=== PATIENT | female | born 1980 | race Two or more races ===

== ENCOUNTER 2024-06-03 18:43 | Inpatient (IN) | payer MEDICAID ==
[~2024-06-03] VITALS: Ht 162.6 cm; Wt 78.6 kg
--- NOTE | 2024-06-03 19:34 | ED.PDOC ---
Musculoskeletal HPI Comments 44-year-old female presents with a chief complaint of right foot pain x 2 weeks. Patient states that she was mopping x 2 weeks ago and somehow injured her foot. Patient is stating that her pain is localized to her right distal foot, nonradiating, and is constant. Patient mentions that she went to the urgent care and was assessed. Patient mentions that urgent care told her that she had inflammation and reassured her that nothing was broken. Patient mentions that she was prescribed Tylenol. Patient mentions that she has been taking Tylenol but denies any improvement of symptoms. Patient is able to ambulate. PMHx: Denies PSHx: Denies SHx: Denies HPI: Poor Historian. REVIEW OF SYSTEMS: CONSTITUTIONAL: Denies acute: fever, diaphoresis, chills, generalized weakness. HEAD: Denies acute: headache, photophobia Eyes: Denies acute: Double vision, vision loss, eye pain, eye discharge. EARS: Denies acute: tinnitus, hearing loss, ear discharge, ear pain, THROAT: Denies acute: sore throat, swelling, difficulty swallowing , pain with swallowing, change in voice. NECK: Denies acute: neck pain, neck swelling, stiff neck. HEART: Denies acute : chest pain, palpitations, LUNGS: Denies acute: SOB, wheezing, cough, hemoptysis ABDOMEN: Denies acute: abdominal pain, Nausea, Vomiting, diarrhea, melena , hematemesis, hematochezia SKIN: Denies acute: rash, redness, lesions, itchiness. EXTREMITIES: Denies acute: calf pain, numbness, tingling, weakness, Denies acute: Low back pain. Neuro: Denies acute: focal neurological deficit, motor or sensory focal neurological deficit, tremors, seizure like activity, confusion, dizziness, change in mental status, loss of bowel or bladder function, cauda equina like symptoms. : Denies acute: dysuria, hematuria, flank pain, increase in urinary frequency. PSYCH: Denies acute: hallucination, suicidal ideation, homicidal ideation. FEMALE: Denies acute: abnormal vaginal bleeding, foul odor, unusual discharge. PHYSICAL EXAM: General: no acute distress, awake and alert. Head: normocephalic, atraumatic. Neck: supple, trachea is midline, no swelling. Throat: Normal phonation. Eyes:, no erythema, no purulent discharge, no proptosis, no icterus. Heart: regular rate, regular rhythm, no significant murmur appreciated. Lungs: no apparent respiratory distress, Able to speak in full sentences. No wheezing, no rhonchi, no crackles. No stridors Clear to auscultation bilaterally. Abdomen: non tender to palpation, non distended, soft, no guarding, no rebound, + bowel sounds. Neuro: Awake, Alert, oriented to name, self, situation, follows commands GCS=15. Speech is normal. Skin: no petechia, no purpura, no cyanosis, non-pale, not jaundice. Lower extremities: --no - Pitting edema no deformity, no focal swelling, no calf TTP. Evaluation of the right foot: Patient points to the base of the toes 3rd and 4th and 5th digit both at the plantar and dorsal aspect of the base of the toes where her pain is. Pain is worse with movement of the toes. Area is tenderness to palpation. No apparent swelling or bruising. Patient is neurovascularly intact in the affected extremity. Pedal pulses palpable. Sensory and motor are present. Makes eye contact. moves all four extremities. Face: no apparent facial droop. Ambulating in the ED independently. Pedal pulses are palpable. 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 Was a procedure done?: No Differential Diagnosis EXT Differential Diagnosis: Cellulitis, Deep Vein Thrombosis, Compartment Syndrome, Fracture, Sprain, Dislocation, Gout, DJD, Myocardial Infarction, Contusion, Strain, Rheumatoid, Septic, Neurovascular injury, Arthritis, Bursitis X-Ray, Labs, Meds, VS Vital Signs Date Time Temp Pulse Resp B/P (MAP) Pulse Ox O2 Delivery O2 Flow Rate FiO2 06/03/24 22:13 98.0 80 18 121/78 (92) 96 98.0 06/03/24 20:13 98.1 104 16 147/92 (110) 96 98.1 06/03/24 19:37 99.9 112 18 157/98 (117) 98 99.9 Lab Test 06/03/24 20:49 06/03/24 19:40 06/03/24 18:08 Range/Units D-Dimer, Quantitative < 0.19 0.0-0.49 mg/L FEU Troponin I High Sensitivity 9 10 </=34 ng/L White Blood Count 18.8 H 4.4-10.8 10^3/uL Red Blood Count 4.44 4.0-5.20 10^6/uL Hemoglobin 13.3 12.2-16.2 g/dL Hematocrit 40.6 36.0-46.0 % Mean Corpuscular Volume 91.4 80.0-100.0 fL Mean Corpuscular Hemoglobin 30.1 28.0-32.0 pg Mean Corpuscular Hemoglobin Concent 32.9 32.0-36.0 g/dL Red Cell Distribution Width 14.0 11.8-14.3 % Platelet Count 293 140-450 10^3/uL Mean Platelet Volume 8.5 6.9-10.8 fL Neutrophils (%) (Auto) 83.1 H 37.0-80.0 % Lymphocytes (%) (Auto) 10.0 10.0-50.0 % Monocytes (%) (Auto) 4.6 0.0-12.0 % Eosinophils (%) (Auto) 1.9 0.0-7.0 % Basophils (%) (Auto) 0.4 0.0-2.0 % Neutrophils # (Auto) 15.6 H 1.6-8.6 10 ^3/uL Lymphocytes # (Auto) 1.9 0.4-5.4 10 ^3/uL Monocytes # (Auto) 0.9 0-1.3 10 ^3/uL Eosinophils # (Auto) 0.4 0-0.8 10 ^3/uL Basophils # (Auto) 0.1 0-0.2 10 ^3/uL Nucleated Red Blood Cells 0.0 % Erythrocyte Sedimentation Rate 10 0-20 mm/hr Sodium Level 139 136-145 mmol/L Potassium Level 4.1 3.5-5.1 mmol/L Chloride Level 107 98-107 mmol/L Carbon Dioxide Level 24 20-31 mmol/L Anion Gap 8 5-15 Blood Urea Nitrogen 14 9-23 mg/dL Creatinine 0.65 0.550-1.02 mg/dL Glomerular Filtration Rate Calc 111 >90 mL/min BUN/Creatinine Ratio 21.5 H 10.0-20.0 Serum Glucose 111 H 74-106 mg/dL Lactic Acid Level 1.3 0.4-2.0 mmol/L Uric Acid 4.4 3.1-7.8 mg/dL Calcium Level 10.0 8.7-10.4 mg/dL Magnesium Level 2.1 1.6-2.6 mg/dL Total Bilirubin 0.4 0.2-1.0 mg/dL Aspartate Amino Transferase (AST) 32 13-40 U/L Alanine Aminotransferase (ALT) 68 H 7-40 U/L Alkaline Phosphatase 104 46-116 U/L C-Reactive Protein High Sensitivity 0.99 <1.0 mg/dL Total Protein 7.0 5.7-8.2 g/dL Albumin 4.7 3.2-4.8 g/dL Thyroid Stimulating Hormone (TSH) 3.94 0.55-4.78 uIU/mL Urine Color Colorless Yellow Urine Clarity Clear Clear Urine pH 6.5 5.0-9.0 Urine Specific [place] 1.012 1.001-1.035 Urine Protein Negative Negative Urine Ketones Negative Negative Urine Blood Negative Negative /uL Urine Nitrite Negative Negative Urine Bilirubin Negative Negative Urine Urobilinogen Normal Negative mg/dL Urine Leukocyte Esterase Negative Negative /uL Urine RBC 1 0 - 4 /hpf Urine Microscopic WBC 3 0-5 /HPF Urine Squamous Epithelial Cells Few <5 /hpf Urine Bacteria None seen None Seen /hpf Urine Glucose Normal Normal mg/dL Current Medications Medications (Trade) Dose Ordered Sig/Jeremiah Route Start Time Stop Time Status Last Admin Acetaminophen/ Hydrocodone Bitart ([place] 5/325MG Tab) 1 tab ONCE ONCE PO 06/03/24 19:45 06/03/24 19:46 DC 06/03/24 20:10 Sodium Chloride 1,000 ml @ 1,000 mls/hr Q1H ONCE IV 06/03/24 20:45 06/03/24 21:44 DC 06/03/24 22:06 Ceftriaxone Sodium 50 ml @ 100 mls/hr ONCE ONCE IV 06/03/24 20:45 06/03/24 21:35 DC 06/03/24 22:05 PATIENT: DESI MENDOSAACCT: [id number]: [id number] : 1980 LOC: ER ROOM / BED: / AGE / SEX: 44 / F ADM STATUS: REG ER SERVICE 30 ORDERING PHYSICIAN: RAFAELA TOWNSEND DO PROCEDURE(s): RFOOT - R FOOT 3 VIEW XRAY REASON: foot pain ORDER NUMBER(s): [id number], ACCESSION NUMBER(s): [id number] XY R FOOT 3 VIEW XRAY, June 04, 1999 INDICATION: foot pain TECHNICAL DATA: Frontal, oblique and lateral views were obtained of the right foot. COMPARISON: None FINDINGS: Bones are intact over there is edema involving the forefoot IMPRESSION: 1. Bones are intact but there is edema involving the forefoot . ATED BY: DESTIN LANDAVERDE MD DICTATED DATE/TIME: 06/03/242019 SIGNED BY: DESTIN LANDAVERDE MD SIGNED DATE/TIME: 06/03/242019 Time of 1ST Reevaluation: 19:58 Reevaluation 1ST: Unchanged Patient Education/Counseling: Diagnosis, Treatment Family Education/Counseling: No Family Present Comments Patient presented with the above HPI.----foot pain/tachycardic--workup was initiated. patient was found with the above mentioned diagnosis. the following medications were ordered: please refer to order lists of meds and tests obtained by myself Dr. Townsend. Patient ED course and VS have been stabilized. Patient has been reassessed in the ED and remained in a stable condition. Pertinent incidental findings were discussed with the patient and/or family. Patient/family voices understanding and is agreeable with plan. Patient has been observed in the ED adequate length of time to insure improvement/stability. Escalation of care considered: Consideration of escalation to observation or admission Patient was ADMITTED to the medicine team for further evaluation and treatment of their presentation. Patient does meet sepsis criteria per presentation. Sepsis protocol was initiated with fluids. All the reports of any imaging studies that were ordered by myself were reviewed by myself. Departure 1 Departure Time of Disposition: 21:28 Impression: Primary Impression: Leukocytosis Additional Impressions: Tachycardia Right foot pain Disposition: ADMITTED INPATIENT Admit to: Tele Condition: Guarded Discharged With: Self Critical Care Note Critical Care Time?: No I personally scribed for RAFAELA TOWNSEND DO ([email or web address]) on 06/03/24 at 19:34. Electronically submitted by Juan Miguel Edwards ([email or web address]). I personally scribed for RAFAELA TOWNSEND DO ([email or web address]) on 06/03/24 at 20:29. Electronically submitted by Juan Miguel Edwards ([email or web address]). RAFAELA TOWNSEND DO Jun 03, 2024 19:34
[2024-06-03] MEDS: HYDROcodone-ACET 5/325MG TAB PO ONE (20:10)
--- NOTE | 2024-06-03 20:23 | DVH ---
XY R FOOT 3 VIEW XRAY, June 04, 1999 25 INDICATION: foot pain TECHNICAL DATA: Frontal, oblique and lateral views were obtained of the right foot. COMPARISON: None FINDINGS: Bones are intact over there is edema involving the forefoot IMPRESSION: 1. Bones are intact but there is edema involving the forefoot .
[2024-06-03 20:24] LABS: Basophils # (auto) 0.1 10 ^3/uL (0-0.2); Basophils % (auto) 0.4 % (0.0-2.0); Eosinophils # (auto) 0.4 10 ^3/uL (0-0.8); Eosinophils % (auto) 1.9 % (0.0-7.0); Hematocrit 40.6 % (36.0-46.0); Hemoglobin 13.3 g/dL (12.2-16.2); Lymphocytes # (auto) 1.9 10 ^3/uL (0.4-5.4); Mean Corpuscular Hemoglobin 30.1 pg (28.0-32.0); Mean Corpuscular Hgb Conc. 32.9 g/dL (32.0-36.0); Mean Corpuscular Volume 91.4 fL (80.0-100.0); Monocytes # (auto) 0.9 10 ^3/uL (0-1.3); Monocytes % (auto) 4.6 % (0.0-12.0); Neutrophils # (auto) 15.6 10 ^3/uL (1.6-8.6); Neutrophils % (auto) 83.1 % (37.0-80.0); Platelet Count (auto) 293 10^3/uL (140-450); Red Blood Cells 4.44 10^6/uL (4.0-5.20); White Blood Cell 18.8 10^3/uL (4.4-10.8)
[2024-06-03 20:29] LABS: Albumin 4.7 g/dL (3.2-4.8); Alkaline Phosphatase 104 U/L (46-116); Anion Gap 8 (5-15); Aspartate Aminotransferase 32 U/L (13-40); BUN/Creatinine Ratio 21.5 (10.0-20.0); Bilirubin, Total 0.4 mg/dL (0.2-1.0); Blood Urea Nitrogen 14 mg/dL (9-23); Carbon Dioxide 24 mmol/L (20-31); Chloride 107 mmol/L (98-107); Magnesium 2.1 mg/dL (1.6-2.6); Potassium 4.1 mmol/L (3.5-5.1); Sodium 139 mmol/L (136-145); Uric Acid 4.4 mg/dL (3.1-7.8)
[2024-06-03 20:30] LABS: Alanine Aminotransferase 68 U/L (7-40); Glucose 111 mg/dL (74-106)
[2024-06-03 20:41] LABS: Urine Bacteria None Seen /hpf (None Seen)
[2024-06-03 20:41] LABS: CRP High Sensitivity 0.99 mg/dL (<1.0)
[2024-06-03 20:58] LABS: Urine Blood Negative /uL (Negative); Urine Clarity Clear (Clear); Urine Color Colorless (Yellow); Urine Protein, UAD Negative (Negative); Urine Specific Gravity 1.012 (1.001-1.035); Urine Squamous Epithelial Cell FEW /hpf (<5); Urine Urobilinogen Normal (Negative); Urine WBC 3 /HPF (0-5); Urine pH 6.5 (5.0-9.0)
--- NOTE | 2024-06-03 21:06 | DVH ---
CHEST RADIOGRAPH Indication: tachy, leukocytosis Technique: Single frontal view of the chest was obtained Comparison: None FINDINGS: Lines and Tubes: None Lungs: No focal consolidation. Pleura: No effusion. No pneumothorax. Cardiomediastinal contours: Unremarkable Bones: No acute osseous abnormality. IMPRESSION: 1. No acute cardiopulmonary disease. HS:Y
[2024-06-03 21:33] LABS: Erythrocyte Sedimentation Rate 10 mm/hr (0-20)
[2024-06-03] MEDS: cefTRIAXone 1GM/50ML D5W 50 ML IV ONE (22:05)
[2024-06-03] MEDS: SODIUM CHLORIDE 0.9% 1,000 ML IV ONE (22:06)
[2024-06-03 22:15] VITALS: PULSE 80; RESP 18; O2SAT 95
[2024-06-03] MEDS ORDERED: MORPHINE SULFATE INJ 2 MG/ml SYRG IV PRN ×2 (22:45→23:15)
[2024-06-03] MEDS ORDERED: DOCUSATE SOD 100 MG CAP PO PRN (22:45)
[2024-06-03] MEDS ORDERED: ONDANSETRON HCL 4 MG/2 ML VIAL IV PRN (22:45)
[2024-06-03] MEDS ORDERED: HYDROcodone-ACET 5/325MG TAB PO PRN (22:45)
[2024-06-03] MEDS ORDERED: NITROGLYCERIN 0.4 MG SL TAB SL PRN (23:15)
--- NOTE | 2024-06-03 23:16 | DVHHP2 ---
History of Present Illness Reason for Visit: Leukocytosis, unspecified History of Present Illness The patient is a 44-year-old female who denies past medical history presented to [facility] ED with complaint of right foot pain for the past 2 weeks. Patient reports she has been having localized pain to her right distal foot, nonradiating, constant, sharp sensation, rating 7/10 numeric scale, getting worse that prompted this visit. Patient was seen and evaluated in the ED, laboratory data shows WBC 18.8, platelets 293, sodium 139, potassium 4.1, BUN 14, creatinine 0.65, GFR 111, glucose 111, AST 32, ALT 68, troponin 10, TSH 3.94. Right foot x-ray revealing bones are intact but there is edema involving the forefoot. Please see medication orders section in the computer. On my assessment, patient denied chest pain, no headache, no dizziness, no shortness of breaths, no nausea, no vomiting, no fever, no chills. Patient was admitted for further evaluation and medical management. Past Medical History Denies past medical history Past Surgical History Denies all surgeries Family History Reviewed, noncontributory to the management of this case. Past Social History The patient lives at home, denies smoking, alcohol or illicit drugs abuse. Review of Systems Constitutional: No: Fever, Chills, Sweats, Weakness, Malaise, Other Eyes: No: Pain, Vision change, Conjunctivae inflammation, Eyelid inflammation, Other, Redness ENT: No: Ear pain, Ear discharge, Nose pain, Nose discharge, Nose congestion, Mouth pain, Mouth swelling, Throat pain, Throat swelling, Other Respiratory: No: Cough, Dry, Shortness of breath, SOB with excertion, Wheezing, Hemoptysis, Pleuritic Pain, Sputum, Wheezing, Other Cardiovascular: No: Chest Pain, Palpitations, Orthopnea, Paroxysmal Noc. Dyspnea, Edema, Lt Headedness, Other Gastrointestinal: No: Nausea, Vomiting, Abdominal Pain, Diarrhea, Constipation, Melena, Hematochezia, Other Genitourinary: No Dysuria, No Frequency, No Incontinence, No Hematuria, No Retention, No Other Musculoskeletal: other (Right foot pain); No: neck pain, shoulder pain, arm pain, back pain, hand pain, leg pain, foot pain Skin: No: Rash, Lesions, Jaundice, Bruising, Other Neurological: No: Weakness, Numbness, Incoordination, Change in speech, Confusion, Seizures, Other Allergies: Coded Allergies: NO KNOWN ALLERGIES (Unverified , 06/03/24) Medications Current Medications Medications Dose Ordered Sig/Jeremiah Route Start Time Stop Time Status Last Admin Dose Admin Ceftriaxone Sodium 50 ml @ 100 mls/hr DAILY@2100 IV 06/04/24 21:00 Sodium Chloride 10 ml Q8HR IV 06/04/24 06:00 Acetaminophen/ Hydrocodone Bitart 1 tab Q4HP PRN PO 06/03/24 22:45 Ondansetron HCl 4 mg Q4HP PRN IV 06/03/24 22:45 Docusate Sodium 100 mg BIDPRN PRN PO 06/03/24 22:45 Acetaminophen 650 mg Q6HP PRN PO 06/03/24 22:45 Morphine Sulfate 2 mg Q4HPRN PRN IV 06/03/24 22:45 Exam Vital Signs Vital Signs Date Time Temp Pulse Resp B/P (MAP) Pulse Ox O2 Delivery O2 Flow Rate FiO2 06/03/24 22:15 80 18 95 Room Air* 0 21 06/03/24 22:13 98.0 121/78 (92) 98.0 General Appearance: Alert, Oriented X3, Cooperative, No acute distress HEENT: Atraumatic, PERRLA, EOMI, Mucous membr. moist/pink Respiratory: Clear to auscultation, Normal air movement Cardiovascular: Regular rate, Normal S1, Normal S2, No murmurs Abdominal: Normal bowel sounds, Soft, No tenderness, No hepatospenomegaly, No masses Extremities: No clubbing, No cyanosis, No edema, Normal pulses, No ten derness/swelling Skin: No rashes, No breakdown, No significant lesion Neuro: Normal gait, Normal speech, Strength at 5/5 X4 ext, Normal tone, Sensation intact, Cranial nerves 3-12 NL, Reflexes 2+ Psych/Mental Status: Mental status NL, Mood NL Labs/Xrays Labs Test 06/03/24 22:55 06/03/24 20:49 06/03/24 19:40 06/03/24 18:08 Range/Units D-Dimer, Quantitative < 0.19 0.0-0.49 mg/L FEU White Blood Count 18.8 H 4.4-10.8 10^3/uL Red Blood Count 4.44 4.0-5.20 10^6/uL Hemoglobin 13.3 12.2-16.2 g/dL Hematocrit 40.6 36.0-46.0 % Mean Corpuscular Volume 91.4 80.0-100.0 fL Mean Corpuscular Hemoglobin 30.1 28.0-32.0 pg Mean Corpuscular Hemoglobin Concent 32.9 32.0-36.0 g/dL Red Cell Distribution Width 14.0 11.8-14.3 % Platelet Count 293 140-450 10^3/uL Mean Platelet Volume 8.5 6.9-10.8 fL Neutrophils (%) (Auto) 83.1 H 37.0-80.0 % Lymphocytes (%) (Auto) 10.0 10.0-50.0 % Monocytes (%) (Auto) 4.6 0.0-12.0 % Eosinophils (%) (Auto) 1.9 0.0-7.0 % Basophils (%) (Auto) 0.4 0.0-2.0 % Neutrophils # (Auto) 15.6 H 1.6-8.6 10 ^3/uL Lymphocytes # (Auto) 1.9 0.4-5.4 10 ^3/uL Monocytes # (Auto) 0.9 0-1.3 10 ^3/uL Eosinophils # (Auto) 0.4 0-0.8 10 ^3/uL Basophils # (Auto) 0.1 0-0.2 10 ^3/uL Nucleated Red Blood Cells 0.0 % Erythrocyte Sedimentation Rate 10 0-20 mm/hr Sodium Level 139 136-145 mmol/L Potassium Level 4.1 3.5-5.1 mmol/L Chloride Level 107 98-107 mmol/L Carbon Dioxide Level 24 20-31 mmol/L Anion Gap 8 5-15 Blood Urea Nitrogen 14 9-23 mg/dL Creatinine 0.65 0.550-1.02 mg/dL Glomerular Filtration Rate Calc 111 >90 mL/min BUN/Creatinine Ratio 21.5 H 10.0-20.0 Serum Glucose 111 H 74-106 mg/dL Lactic Acid Level 1.3 0.4-2.0 mmol/L Uric Acid 4.4 3.1-7.8 mg/dL Calcium Level 10.0 8.7-10.4 mg/dL Magnesium Level 2.1 1.6-2.6 mg/dL Total Bilirubin 0.4 0.2-1.0 mg/dL Aspartate Amino Transferase (AST) 32 13-40 U/L Alanine Aminotransferase (ALT) 68 H 7-40 U/L Alkaline Phosphatase 104 46-116 U/L C-Reactive Protein High Sensitivity 0.99 <1.0 mg/dL Total Protein 7.0 5.7-8.2 g/dL Albumin 4.7 3.2-4.8 g/dL Thyroid Stimulating Hormone (TSH) 3.94 0.55-4.78 uIU/mL Urine Color Colorless Yellow Urine Clarity Clear Clear Urine pH 6.5 5.0-9.0 Urine Specific [place] 1.012 1.001-1.035 Urine Protein Negative Negative Urine Ketones Negative Negative Urine Blood Negative Negative /uL Urine Nitrite Negative Negative Urine Bilirubin Negative Negative Urine Urobilinogen Normal Negative mg/dL Urine Leukocyte Esterase Negative Negative /uL Urine RBC 1 0 - 4 /hpf Urine Microscopic WBC 3 0-5 /HPF Urine Squamous Epithelial Cells Few <5 /hpf Urine Bacteria None seen None Seen /hpf Urine Glucose Normal Normal mg/dL PATIENT: DESI MENDOSAACCT: [id number] UNIT: [id number] : 1980 LOC: ER ROOM / BED: / AGE / SEX: 44 / F ADM STATUS: REG ER SERVICE 30 ORDERING PHYSICIAN: RAFAELA TOWNSEND DO PROCEDURE(s): RFOOT - R FOOT 3 VIEW XRAY REASON: foot pain ORDER NUMBER(s): [id number], ACCESSION NUMBER(s): [id number] XY R FOOT 3 VIEW XRAY, June 04, 1999 25 INDICATION: foot pain TECHNICAL DATA: Frontal, oblique and lateral views were obtained of the right foot. COMPARISON: None FINDINGS: Bones are intact over there is edema involving the forefoot IMPRESSION: 1. Bones are intact but there is edema involving the forefoot ORDERING PHYSICIAN: RAFAELA TOWNSEND DO PROCEDURE(s): CXRP - CHEST PORTABLE REASON: tachy, leukocytosis ORDER NUMBER(s): [id number], ACCESSION NUMBER(s): [id number] CHEST RADIOGRAPH Indication: tachy, leukocytosis Technique: Single frontal view of the chest was obtained Comparison: None FINDINGS: Lines and Tubes: None Lungs: No focal consolidation. Pleura: No effusion. No pneumothorax. Cardiomediastinal contours: Unremarkable Bones: No acute osseous abnormality. IMPRESSION: 1. No acute cardiopulmonary disease. Assessment/Plan Assessment/Plan Leukocytosis, unspecified Tachycardia Right foot pain Plan 1. Admit to telemetry unit 2. Breathing treatment 3. Pain control management 4. IV antibiotic management 5. Management of fluids and electrolytes 6. Consultation for hospitalist 7. Diagnostic test right foot x-ray 8. DVT prophylaxis-on SCDs 9. Repeat labs CBC, CMP in a.m. 10. Continue with current medical management 11. Treatment plan discussed with patient and RN. Patient verbalized understanding. Plan discussed with: Patient, Other (RN) My Orders Orders - DAVID BLUE DNP Procedure Category Date Status Time Ceftriaxone 1gm/50ml PHA 06/04/24 In Process D5w (Rocephin) 21:00 Allergies KEELY 06/03/24 In Process 22:44 Code Status CODE 06/03/24 Transmitted 22:44 Sodium Chloride Lock PHA 06/04/24 In Process (Saline Lock Ns) 06:00 Oxygen Per Hour RT 06/03/24 Transmitted 22:44 Hydrocodone-Acet PHA 06/03/24 In Process 5/325mg Tab (Brooks 22:45 Ondansetron Hcl PHA 06/03/24 In Process (Zofran) 22:45 Docusate Sodium PHA 06/03/24 In Process Capsule (Colace 22:45 Complete Blood Count LAB 06/04/24 Verified 04:00 Comprehensive LAB 06/04/24 Verified Metabolic Panel 04:00 Cardiac DIET 06/04/24 Transmitted Diet-2gna,Lofat,Lochol Breakfast Condition: Serious KEELY 06/03/24 In Process 22:44 Acetaminophen Tablet PHA 06/03/24 In Process (Tylenol Tablet) 22:45 Bedrest With Bathroom KEELY 06/03/24 In Process Privileg 22:44 Morphine Sulfate PHA 06/03/24 In Process Injection 22:45 Sequential KEELY 06/03/24 In Process Compression Device Problem List: (1) Leukocytosis, unspecified (2) Tachycardia (3) Right foot pain Date of Service: Jun 03, 2024 Billing Provider: DAVID BLUE DNP Common Visit Codes: [id number] INP/OBS CARE (HIGH) DAVID BLUE DNP Jun 03, 2024 23:16
[2024-06-04] VITALS (10 sets, daily range): BP systolic 117–129; BP diastolic 72–84; PULSE 59–75; RESP 16–19; TEMP 97.6–98; O2SAT 96–98
[2024-06-04] MEDS: SODIUM CHLOR 0.9% PF (SALINE LOCK) 10ML VIAL/SYR IV SCH (06:02)
[2024-06-04 08:06] LABS: Basophils # (auto) 0.1 10 ^3/uL (0-0.2); Basophils % (auto) 0.4 % (0.0-2.0); Eosinophils # (auto) 0.5 10 ^3/uL (0-0.8); Eosinophils % (auto) 3.4 % (0.0-7.0); Hematocrit 36.9 % (36.0-46.0); Hemoglobin 12.4 g/dL (12.2-16.2); Lymphocytes # (auto) 1.7 10 ^3/uL (0.4-5.4); Mean Corpuscular Hemoglobin 30.7 pg (28.0-32.0); Mean Corpuscular Hgb Conc. 33.6 g/dL (32.0-36.0); Mean Corpuscular Volume 91.3 fL (80.0-100.0); Monocytes # (auto) 0.8 10 ^3/uL (0-1.3); Monocytes % (auto) 5.8 % (0.0-12.0); Neutrophils # (auto) 10.2 10 ^3/uL (1.6-8.6); Neutrophils % (auto) 77.4 % (37.0-80.0); Platelet Count (auto) 256 10^3/uL (140-450); Red Blood Cells 4.04 10^6/uL (4.0-5.20); Red Cell Distribution Width 14.4 % (11.8-14.3); White Blood Cell 13.2 10^3/uL (4.4-10.8)
[2024-06-04 08:20] LABS: Alanine Aminotransferase 55 U/L (7-40); Albumin 4.1 g/dL (3.2-4.8); Alkaline Phosphatase 90 U/L (46-116); Anion Gap 11 (5-15); Aspartate Aminotransferase 23 U/L (13-40); BUN/Creatinine Ratio 16.7 (10.0-20.0); Blood Urea Nitrogen 9 mg/dL (9-23); Carbon Dioxide 20 mmol/L (20-31); Chloride 107 mmol/L (98-107); Glucose 93 mg/dL (74-106); Potassium 3.6 mmol/L (3.5-5.1); Sodium 138 mmol/L (136-145); Total Protein 6.5 g/dL (5.7-8.2)
[2024-06-04 08:21] LABS: Bilirubin, Total 0.6 mg/dL (0.2-1.0)
[2024-06-04] MEDS: ACETAMINOPHEN 325 MG TAB PO PRN (12:08)
--- NOTE | 2024-06-04 16:54 | DVHPN2 ---
Subjective Feels better Reviewed: Care Plan, H&P, Labs, Medications, Previous Orders, Radiology Changes from previous H/P or p: No Changes Objective Vitals Vital Signs Date Time Temp Pulse Resp B/P (MAP) Pulse Ox O2 Delivery O2 Flow Rate FiO2 06/04/24 13:00 97.9 66 19 126/84 (98) 97 97.9 06/04/24 08:00 Room Air* 0 21 Intake/Output Intake and Output 06/04/24 07:00 Intake Total 110 ml Balance 110 ml Intake Oral 110 ml # Voids 1 General Appearance: Alert, Oriented X3, Cooperative, No acute distress HEENT: Atraumatic Lungs: Clear to auscultation Cardiovascular: Regular rate Abdomen: Normal bowel sounds, Soft, No tenderness Extremities: Other (Right foot showed some distal metatarsal warmth and tenderness and minimal swelling) Medications Current Medications Medications Dose Ordered Sig/Jeremiah Route Start Time Stop Time Status Last Admin Dose Admin Ceftriaxone Sodium 50 ml @ 100 mls/hr DAILY@2100 IV 06/04/24 21:00 Sodium Chloride 10 ml Q8HR IV 06/04/24 06:00 06/04/24 14:10 10 ML Acetaminophen/ Hydrocodone Bitart 1 tab Q4HP PRN PO 06/03/24 22:45 Ondansetron HCl 4 mg Q4HP PRN IV 06/03/24 22:45 Docusate Sodium 100 mg BIDPRN PRN PO 06/03/24 22:45 Acetaminophen 650 mg Q6HP PRN PO 06/03/24 22:45 06/04/24 12:08 650 MG Morphine Sulfate 2 mg Q4HPRN PRN IV 06/03/24 22:45 Nitroglycerin 0.4 mg Q5MINP PRN SL 06/03/24 23:15 Morphine Sulfate 2 mg Q30M PRN IV 06/03/24 23:15 Laboratory Results Laboratory Tests 06/04/24 06:54 Chemistry Test 06/03/24 19:40 06/04/24 06:54 Albumin 4.7 g/dL (3.2-4.8) 4.1 g/dL (3.2-4.8) Calcium Level 10.0 mg/dL (8.7-10.4) 9.0 mg/dL (8.7-10.4) Magnesium Level 2.1 mg/dL (1.6-2.6) Total Protein 7.0 g/dL (5.7-8.2) 6.5 g/dL (5.7-8.2) Coagulation Test 06/03/24 20:49 D-Dimer, Quantitative < 0.19 mg/L FEU (0.0-0.49) LFT Test 06/03/24 19:40 06/04/24 06:54 Alanine Aminotransferase (ALT) 68 U/L (7-40) H 55 U/L (7-40) H Alkaline Phosphatase 104 U/L (46-116) 90 U/L (46-116) Aspartate Amino Transferase (AST) 32 U/L (13-40) 23 U/L (13-40) Total Bilirubin 0.4 mg/dL (0.2-1.0) 0.6 mg/dL (0.2-1.0) HgA1c, TSH Test 06/03/24 19:40 Thyroid Stimulating Hormone (TSH) 3.94 uIU/mL (0.55-4.78) Urinalysis Test 06/03/24 18:08 Urine Color Colorless (Yellow) Urine Clarity Clear (Clear) Urine pH 6.5 (5.0-9.0) Urine Specific [place] 1.012 (1.001-1.035) Urine Protein Negative (Negative) Urine Ketones Negative (Negative) Urine Blood Negative /uL (Negative) Urine Nitrite Negative (Negative) Urine Bilirubin Negative (Negative) Urine Urobilinogen Normal mg/dL (Negative) Urine Leukocyte Esterase Negative /uL (Negative) Urine RBC 1 /hpf (0 - 4) Urine Microscopic WBC 3 /HPF (0-5) Urine Squamous Epithelial Cells Few /hpf (<5) Urine Bacteria None seen /hpf (None Seen) Urine Glucose Normal mg/dL (Normal) Assessment/Plan Assessment/Plan Right foot cellulitis Leukocytosis and possibly sepsis Overweight Plan: IV antibiotic. Podiatry consult if warranted by CT. CT scan of the foot. Chest x-ray. Further plan per orders Plan discussed with: Patient My Orders Orders - DONNIE LORENZANA MD Procedure Category Date Status Time Chest Xray 1 View XY 06/04/24 Logged 15:11 Rt Lower Extremity W CT 06/04/24 Logged CON 15:34 Date of Service: Jun 04, 2024 Billing Provider: DONNIE LORENZANA MD Common Visit Codes: [id number] INP/OBS CARE(HIGH) DONNIE LORENZANA MD Jun 04, 2024 16:54
[2024-06-04] MEDS ORDERED: IOHEXOL 300 MG/ML 100ML BOTTLE IJ ONE (17:00)
[2024-06-04] MEDS ORDERED: DOXYCYCLINE 100MG/100ML 100 ML IV SCH (17:00)
--- NOTE | 2024-06-04 17:51 | DVH ---
CHEST RADIOGRAPH Indication: Cardiac Technique: Single frontal view of the chest was obtained Comparison: XY CHEST PORTABLE on DOS: 06/03/24 FINDINGS: Lines and Tubes: None Lungs: No focal consolidation. Pleura: No effusion. No pneumothorax. Cardiomediastinal contours: Unremarkable Bones: No acute osseous abnormality. IMPRESSION: 1. No acute cardiopulmonary disease. HS:Y
--- NOTE | 2024-06-04 18:09 | DVH ---
EXAM: CT RT LOWER EXTREMITY W CON INDICATION: SWELLING EXAM DATE: 06/04/2024 05:09 PM COMPARISON: None TECHNIQUE: Multiple axial CT images of the right foot and ankle were obtained using bone algorithm. A xial and coronal reformatting was done. Bone and soft tissue windows were reviewed. IV contrast was administered Radiation Dose Information: CT Dose: CTDI volume is 7.75 mGy. Dose-length product is 252.86 mGy*cm Findings/Impression: There is no evidence of an acute fracture, dislocation, blastic, or lytic lesions. No radiopaque foreign bodies. No joint effusion or superficial soft tissue abnormalities. No focal fluid collections or subcutaneo us emphysema. No abnormal enhancement.
[2024-06-04] MEDS: CLINDAMYCIN 300MG IV 50 ML IV ONE (18:23)
[2024-06-04] MEDS: SODIUM CHLORIDE 0.9% 1,000 ML IV SCH (18:23)
[2024-06-04] MEDS: DOXYCYCLINE 100MG/100ML 100 ML IV SCH (19:45)
[2024-06-04] MEDS ORDERED: cefTRIAXone 1GM/50ML D5W 50 ML IV SCH (21:00)
[2024-06-04] MEDS: CLINDAMYCIN 300MG IV 50 ML IV SCH (21:55)
[2024-06-05 01:00] VITALS: BP 125/80; PULSE 76; RESP 19; TEMP 98.4; O2SAT 95
[2024-06-05 05:00] VITALS: BP 125/76; PULSE 74; RESP 18; TEMP 98; O2SAT 96
[2024-06-05 08:00] VITALS: PULSE 61
[2024-06-05 08:19] LABS: Basophils # (auto) 0 10 ^3/uL (0-0.2); Basophils % (auto) 0.4 % (0.0-2.0); Eosinophils # (auto) 0.4 10 ^3/uL (0-0.8); Eosinophils % (auto) 3.5 % (0.0-7.0); Hematocrit 36.3 % (36.0-46.0); Hemoglobin 12.7 g/dL (12.2-16.2); Lymphocytes # (auto) 1.4 10 ^3/uL (0.4-5.4); Lymphocytes % (auto) 12.4 % (10.0-50.0); Mean Corpuscular Volume 91.6 fL (80.0-100.0); Monocytes # (auto) 0.9 10 ^3/uL (0-1.3); Monocytes % (auto) 8.1 % (0.0-12.0); Neutrophils # (auto) 8.3 10 ^3/uL (1.6-8.6); Neutrophils % (auto) 75.6 % (37.0-80.0); Platelet Count (auto) 249 10^3/uL (140-450); Red Blood Cells 3.97 10^6/uL (4.0-5.20); Red Cell Distribution Width 14.3 % (11.8-14.3)
[2024-06-05 09:13] VITALS: BP 109/76; PULSE 64; RESP 20; TEMP 98.1; O2SAT 100
--- NOTE | 2024-06-05 12:09 | DVHDS2 ---
Discharge Summary Date of Admission Jun 03, 2024 at 23:15 Date of Discharge: Jun 05, 2024 Admitting Diagnosis Right foot pain and cellulitis with leukocytosis and possible sepsis Labs/Diagnostic Data: Laboratory Results Test 06/05/24 07:21 06/04/24 06:54 06/03/24 22:55 06/03/24 20:49 White Blood Count 11.0 10^3/uL (4.4-10.8) Red Blood Count 3.97 10^6/uL (4.0-5.20) Hemoglobin 12.7 g/dL (12.2-16.2) Hematocrit 36.3 % (36.0-46.0) Mean Corpuscular Volume 91.6 fL (80.0-100.0) Mean Corpuscular Hemoglobin 32.0 pg (28.0-32.0) Mean Corpuscular Hemoglobin Concent 35.0 g/dL (32.0-36.0) Red Cell Distribution Width 14.3 % (11.8-14.3) Platelet Count 249 10^3/uL (140-450) Mean Platelet Volume 8.2 fL (6.9-10.8) Neutrophils (%) (Auto) 75.6 % (37.0-80.0) Lymphocytes (%) (Auto) 12.4 % (10.0-50.0) Monocytes (%) (Auto) 8.1 % (0.0-12.0) Eosinophils (%) (Auto) 3.5 % (0.0-7.0) Basophils (%) (Auto) 0.4 % (0.0-2.0) Neutrophils # (Auto) 8.3 10 ^3/uL (1.6-8.6) Lymphocytes # (Auto) 1.4 10 ^3/uL (0.4-5.4) Monocytes # (Auto) 0.9 10 ^3/uL (0-1.3) Eosinophils # (Auto) 0.4 10 ^3/uL (0-0.8) Basophils # (Auto) 0 10 ^3/uL (0-0.2) Nucleated Red Blood Cells 0.0 % Sodium Level 138 mmol/L (136-145) Potassium Level 3.6 mmol/L (3.5-5.1) Chloride Level 107 mmol/L (98-107) Carbon Dioxide Level 20 mmol/L (20-31) Anion Gap 11 (5-15) Blood Urea Nitrogen 9 mg/dL (9-23) Creatinine 0.54 mg/dL (0.550-1.02) Glomerular Filtration Rate Calc 116 mL/min (>90) BUN/Creatinine Ratio 16.7 (10.0-20.0) Serum Glucose 93 mg/dL (74-106) Calcium Level 9.0 mg/dL (8.7-10.4) Total Bilirubin 0.6 mg/dL (0.2-1.0) Aspartate Amino Transferase (AST) 23 U/L (13-40) Alanine Aminotransferase (ALT) 55 U/L (7-40) Alkaline Phosphatase 90 U/L (46-116) Total Protein 6.5 g/dL (5.7-8.2) Albumin 4.1 g/dL (3.2-4.8) Troponin I High Sensitivity 9 ng/L (</=34) D-Dimer, Quantitative < 0.19 mg/L FEU (0.0-0.49) Test 06/03/24 19:40 06/03/24 18:08 Erythrocyte Sedimentation Rate 10 mm/hr (0-20) Lactic Acid Level 1.3 mmol/L (0.4-2.0) Uric Acid 4.4 mg/dL (3.1-7.8) Magnesium Level 2.1 mg/dL (1.6-2.6) C-Reactive Protein High Sensitivity 0.99 mg/dL (<1.0) Thyroid Stimulating Hormone (TSH) 3.94 uIU/mL (0.55-4.78) Urine Color Colorless (Yellow) Urine Clarity Clear (Clear) Urine pH 6.5 (5.0-9.0) Urine Specific [place] 1.012 (1.001-1.035) Urine Protein Negative (Negative) Urine Ketones Negative (Negative) Urine Blood Negative /uL (Negative) Urine Nitrite Negative (Negative) Urine Bilirubin Negative (Negative) Urine Urobilinogen Normal mg/dL (Negative) Urine Leukocyte Esterase Negative /uL (Negative) Urine RBC 1 /hpf (0 - 4) Urine Microscopic WBC 3 /HPF (0-5) Urine Squamous Epithelial Cells Few /hpf (<5) Urine Bacteria None seen /hpf (None Seen) Urine Glucose Normal mg/dL (Normal) Other Laboratory Tests 06/05/24 07:21 06/04/24 06:54 Brief Hx & Hospital Course: 44-year-old lady admitted to the hospital from the emergency room because of right foot pain with leukocytosis and tachycardia and possible sepsis. Patient received IV fluid and IV antibiotic. Her white count dropped to 11 today from 18.[address] scan was negative for abscess or other pathologies. Patient condition improved and she discharged home on clindamycin and doxycycline p.o.. She will follow up with PCP within a week. Condition at Discharge: Good Final Diagnosis/Problems List Right foot cellulitis with leukocytosis and sepsis Overweight Discharge Disposition: Home Discharge Instruct/Medications Diet: Regular Activity: Light activity (Light weight-bearing on the right foot) Follow Up/Referral: PCP within one week Medications: Doxycycline 100 mg b.i.d. for seven days Clindamycin 300 mg t.i.d. for seven days Tylenol [id number] p.r.n. pain 33 Discharge Statement: "Patient was advised to return to the ER or call 911 if any headaches, dizziness, shortness of breath, chest pain, abdominal pain, bleeding, fevers, or worsening of medical condition. Patient was counseled about treatment plan, medications, possible side effects, patientverbalized understanding. All questions were answered to the best of my ability. This discharge took greater then 30 minutes in planning, reviewing documentation, counseling the patient, and discussing with other team members." ASSESSMENT ASSESSMENT Assessment Date of Service: Jun 05, 2024 Billing Provider: DONNIE LORENZANA MD Common Visit Codes: 65626-MDQ/OBS DISCH DAY >30min DONNIE LORENZANA MD Jun 05, 2024 12:09
[2024-06-05] MEDS ORDERED: DOXY1CAP57 PO (12:11)
[2024-06-05] MEDS ORDERED: CLIN1CAP70 PO (12:11)
[2024-06-05 13:00] VITALS: BP 133/83; PULSE 62; RESP 20; TEMP 98.1; O2SAT 98
[2024-06-05 13:34] VITALS: BP 133/83; PULSE 62; RESP 20; TEMP 98.1; O2SAT 98
== END 2024-06-05 14:36 | disposition home or self-care (01) | DRG 720 ==
LOC: ER 18:43 → OVERFLOW 23:15 → TELE-EAST 23:16
PROVIDERS: ADMIT Nurse Practitioner Family; ATTEND Nurse Practitioner Family
DX: A41.9 Sepsis, unspecified organism (principal); L03.115 Cellulitis of right lower limb; E66.3 Overweight; R60.9 Edema, unspecified; Z68.28 Body mass index [BMI] 28.0-28.9, adult
CPT/HCPCS: 36415; 71045; 73630; 73701; 80053; 81001; 83605; 83735; 84443; 84484; 84550; 85025; 85379; 85652; 86141; 87040; 96365; G0378; J3490